=== PATIENT | male | born 1950 | race Caucasian/White ===

== ENCOUNTER 2019-04-15 01:07 | Inpatient (IN) | payer MEDICARE ==
[2019-04-15] VITALS (414 sets, daily range): BP systolic 106–148; BP diastolic 68–85; PULSE 86–96; TEMP 97.9–98.4; O2SAT 86–98
[~2019-04-15] VITALS: Ht 175.3 cm; Wt 230.0 kg
--- NOTE | 2019-04-15 01:10 | NUR ---
Pt arrived to room 314, transferred per stretcher by [facility]. Pt will open eyes et answer to verbal stimuli but very minimal movement. Assist x6 to transfer from stretcher to bed. Pt noted to have very labored resp, RR 40, audible expiratory wheezes. RT at bedside c bipap upon pt arrival. O2 at 4L per NC, O2 sat 92%. IV patent. Pt oriented to self only but remains able to answer simple questions appropriately et voice needs. Attempt to orient pt to room, unit policies et current POC. Emy CANVAS MARKER notified of pt arrival et condition. Pt placed on bipap et neb admin by RT per phone order. Will continue c admit assessment.
--- NOTE | 2019-04-15 01:30 | NUR ---
Emy in room to assess pt. RT remains at bedside. Resp less labored than on arrival, RR 32. Pt ivet bipap well at this time.
[2019-04-15] MEDS ORDERED: ASPIRIN E.C. 8181 MG PO (01:59)
[2019-04-15] MEDS ORDERED: LIPITOR 40MG TA40 MG PO (01:59)
[2019-04-15] MEDS ORDERED: THERA-D 20002000 IU PO (02:00)
[2019-04-15] MEDS ORDERED: COLCRYS0.6 MG PO (02:01)
[2019-04-15] MEDS ORDERED: CYMBALTA 20MG20 MG PO (02:02)
[2019-04-15] MEDS ORDERED: PROSCAR 5MG5 MG PO (02:02)
[2019-04-15] MEDS ORDERED: NOVLOG SQ (02:04)
[2019-04-15] MEDS ORDERED: LASIX 20MG TABL20 MG PO (02:04)
[2019-04-15] MEDS ORDERED: LEVEMIR100 U/ML SQ (02:05)
[2019-04-15] MEDS ORDERED: LIDODERM 5% PATC1 EA TP (02:06)
[2019-04-15] MEDS ORDERED: PRINZIDE 12.5 M1 TA1 PO (02:07)
[2019-04-15] MEDS ORDERED: NORVASC 5MG5 MG/TAB PO (02:08)
[2019-04-15] MEDS ORDERED: CLARITIN 1010 MG/TAB PO (02:08)
[2019-04-15] MEDS ORDERED: VTAMINC250TA PO (02:09)
[2019-04-15] MEDS ORDERED: FLEXERIL 1010 MG/TAB PO (02:12)
[2019-04-15] MEDS ORDERED: OCUVITE1 TA1 PO (02:13)
[2019-04-15] MEDS ORDERED: NOVOLOG 100U100 U/M1 SQ (02:14)
[2019-04-15] MEDS ORDERED: SENNA-S 50 MG-81 TAB PO (02:15)
[2019-04-15] MEDS ORDERED: TYLENOL 500MG500 MG PO (02:16)
[2019-04-15] MEDS ORDERED: NEURONTIN400 MG/CAP PO (02:18)
[2019-04-15] MEDS ORDERED: ALBUTEROL0.83 MG/ML IH (02:20)
[2019-04-15] MEDS ORDERED: ATROVENT I0.2 MG/1 M IH (02:22)
[2019-04-15] MEDS ORDERED: MUCINEX 60600 MG/TA1 PO (02:23)
[2019-04-15] MEDS ORDERED: TYLENOL 325MG325 MG PO (02:24)
[2019-04-15] MEDS ORDERED: NYAMYC100000 U/G TP (02:25)
[2019-04-15 04:24] LABS: ARTERIAL BLD GAS O2 SATURATION 95.6 % (92-100); ARTERIAL BLD GAS TCO2 CT 30.7; ARTERIAL BLOOD GAS BASE EXCESS 1.6 (-2-2); ARTERIAL BLOOD GAS HCO3 28.9 meq/L (22-26); ARTERIAL BLOOD GAS PCO2 57.5 mmHg (35-45); ARTERIAL BLOOD GAS PO2 86.8 mmHg (80-100); ARTERIAL BLOOD GAS pH 7.32 (7.35-7.45)
--- NOTE | 2019-04-15 05:02 | NUR ---
Pt resting in bed condition unchanged. Pt has rested well since admit c few needs. Gloria bipap well. No needs at this time. Call light in reach, bed alarm on.
[2019-04-15 07:17] LABS: ARTERIAL BLD GAS O2 SATURATION 96.7 % (92-100); ARTERIAL BLD GAS TCO2 CT 26.5; ARTERIAL BLOOD GAS BASE EXCESS -1.8 (-2-2); ARTERIAL BLOOD GAS HCO3 24.9 meq/L (22-26); ARTERIAL BLOOD GAS PCO2 50.4 mmHg (35-45); ARTERIAL BLOOD GAS PO2 96.1 mmHg (80-100); ARTERIAL BLOOD GAS pH 7.31 (7.35-7.45)
--- NOTE | 2019-04-15 07:29 | NUR ---
Received report. Patient is resting in bed with eyes closed, bipap is in place. Respirations are even and labored. Does not wake up when entering room. Reporting nurse recieved call from sister who reports patient has dementia, does not ambulate and normally has respirator issues similar to this situation. Personal items and call light is within reach.
[2019-04-15 07:59] LABS: BASO % 0.3 % (0.0-2.0); GRAN # 5.7 (1.4-6.5); GRAN % 90.8 % (42.2-75.2); HEMATOCRIT 39.6 % (42.0-52.0); HEMOGLOBIN 12.6 g/dl (13.5-18.0); LYMPH # 0.4 (1.2-3.4); LYMPH % 6.5 % (20.0-51.0); MEAN CELL VOLUME 93 fl (80.0-100.0); MEAN CORPUSCULAR HEMOGLOBIN 30 pg (27.0-31.0); MEAN CORPUSCULAR HGB CONC 32 g/dl (33.0-37.0); MEAN PLATELET VOLUME 8.9 fl (7.4-10.4); MONO # 0.1 (0.1-0.6); MONO % 1.3 % (1.7-9.3); PLATELET COUNT 250 K/mm3 (130-400); RED BLOOD COUNT 4.24 M/mm3 (4.20-5.60)
[2019-04-15 08:10] LABS: CALCIUM 9.4 mg/dL (8.4-10.2); CREATININE, serum 1.75 (0.66-1.25); POTASSIUM 4.8 mmol/L (3.4-5.0)
--- NOTE | 2019-04-15 11:20 | NUR ---
REPORT RECEIVED FROM ANN-MARIE MOONEY ON MEDICAL FLOOR.
--- NOTE | 2019-04-15 11:37 | NUR ---
PT TRANFERRED FROM MEDICAL FLOOR TO ICU ROOM 5 VIA BED BY RN, RT, AND ACCOUNTING ASSISTANT WITH BIPAP IN PLACE. PT TRANSFERRED TO ICU BED AND ASSESSMENT PERFORMED. PT ALERT BUT IS NOT RESPONDING VERBALLY. PT COOPERATIVE AND PASSIVE AT THIS TIME.
--- NOTE | 2019-04-15 11:55 | NUR ---
16F GAMING CATH INSERTED.
--- NOTE | 2019-04-15 13:09 | NUR ---
Patient was transferred to ICU at 1045 in the bed and on bipap to room 5. Report was given to Ade prior to transfer. Respirations were noted to be improved after morphine administration and being placed on bipap. Personal belongings sent with patient.
--- NOTE | 2019-04-15 16:47 | NUR ---
PT SWITCHED TO 4L NC FOR PO PILLS AND MEAL. PT'S SAT 94%
--- NOTE | 2019-04-15 17:30 | NUR ---
PT REQUESTED TO BE PUT BACK ON BIPAP AFTER MEAL D/T SHORTNESS OF BREATH. PT NOTED TO HAVE MODERATE AMT OF WHEEZING WHILE ATTEMPTING TO EAT AND A HARSH INTERMITTENTLY PRODUCTIVE COUGH.
--- NOTE | 2019-04-15 21:10 | NUR ---
PT CONFUSED MOST OF THE TIME AND TAKES A LITTLE TIME TO RESPOND.
[2019-04-16] VITALS (762 sets, daily range): BP systolic 123–156; BP diastolic 60–88; PULSE 62–67; TEMP 97.5–98.5; O2SAT 78–98
--- NOTE | 2019-04-16 01:49 | NUR ---
INLINE TX. PT IS TOLERATING WELL BIPAP.
[2019-04-16 05:19] LABS: HEMATOCRIT 37.2 % (42.0-52.0); HEMOGLOBIN 11.9 g/dl (13.5-18.0); MEAN CELL VOLUME 91 fl (80.0-100.0); MEAN CORPUSCULAR HEMOGLOBIN 29 pg (27.0-31.0); MEAN CORPUSCULAR HGB CONC 32 g/dl (33.0-37.0); PLATELET COUNT 256 K/mm3 (130-400); RED BLOOD COUNT 4.08 M/mm3 (4.20-5.60); REDCELL DISTRIBUTION WIDTH-CV 12.6 % (11.5-14.5)
[2019-04-16 05:31] LABS: CALCIUM 9.5 mg/dL (8.4-10.2); CREATININE, serum 1.8 (0.66-1.25); POTASSIUM 4.4 mmol/L (3.4-5.0)
--- NOTE | 2019-04-16 05:38 | NUR ---
CRITICAL LAB OF GLUCOSE AT 401, RECHECKED WITH OUR MACHINE AND WAS 365. E CARE NOTIFIED AND WILL GIVE 12 UNITS OF NOVOLOG PER SLIDING SCALE ORDER, E CARE OKAY WITH IT.
[2019-04-16 06:34] LABS: LYMPHOCYTE 4 % (20.0-51.0); NEUTROPHILS 93 % (42.0-75.2); PLATELET ESTIMATE NORMAL (NORMAL)
--- NOTE | 2019-04-16 07:15 | NUR ---
BEDSIDE REPORT RECEIVED FROM JESICA KAY. PLAN OF CARE REVIEWED. CARE ASSUMED.
--- NOTE | 2019-04-16 07:22 | NUR ---
report given to JESICA Sherman.
--- NOTE | 2019-04-16 10:00 | NUR ---
CALL PLACED TO [facility] IN [place] TO ASK THE NURSING STAFF WHAT THE PATIENT'S BASELINE O2 REQUIREMENTS ARE. THE NURSE STATES THAT THE PATIENT USES 2L O2 VIA NASAL CANNULA NEEDED. I ASK IF THE PATIENT USES BIPAP AT NIGHT AND THE NURSE STATES THAT THE PATIENT DOES NOT USE BIPAP.
--- NOTE | 2019-04-16 10:29 | NUR ---
SW attended clinical rounds to discuss discharge planning. Patient lives at [facility] in [place]. Patient's PCP is Dr Santillan and [facility] provides all medications. Patient uses O2 PRN and a walker for ambulation. Patient does have a DPOA and a copy is on the chart. Patient's DPOA is his sister, Marguerite. Patient reports he would like to return to [facility] when he is discharged. Patient signed choice form. RAMU will fax updates to [facility].
[2019-04-16 10:51] LABS: ARTERIAL BLD GAS O2 SATURATION 94.3 % (92-100); ARTERIAL BLD GAS TCO2 CT 32.9; ARTERIAL BLOOD GAS BASE EXCESS 4.9 (-2-2); ARTERIAL BLOOD GAS HCO3 31.3 meq/L (22-26); ARTERIAL BLOOD GAS PCO2 53.7 mmHg (35-45); ARTERIAL BLOOD GAS PO2 74.7 mmHg (80-100); ARTERIAL BLOOD GAS pH 7.38 (7.35-7.45)
--- NOTE | 2019-04-16 16:47 | NUR ---
DR. ZARATE CALLED WITH MOST RECENT BLOOD GLUCOSE. HE ORDERS INSULIN GTT TO START. SEE EMAR.
--- NOTE | 2019-04-16 17:00 | NUR ---
PATIENT HAS BEEN WEARING BIPAP FOR MOST OF THE AFTERNOON. HE STATES THAT HE FEELS BETTER WITH BIPAP IN PLACE. WHEN HE TAKES BREAKS FROM BIPAP HE WEARS 4 L O2 VIA NASAL CANNULA.
--- NOTE | 2019-04-16 17:45 | NUR ---
INSULIN GTT STARTED, CONFIRMED DOSE WITH PHARMACY AND JESICA ADAN
--- NOTE | 2019-04-16 19:03 | NUR ---
3 NEBS GIVEN. PT IS MORE ALERT AND ORIENTED. WILL CONTINUE TO MONITOR.
--- NOTE | 2019-04-16 19:15 | NUR ---
BEDSIDE REPORT GIVEN TO JESICA KAY. PLAN OF CARE REVIEWED. INSULIN GTT REVIEWED. CARE TURNED OVER AT THIS TIME.
[2019-04-17] VITALS (811 sets, daily range): BP systolic 115–152; BP diastolic 65–103; PULSE 55–75; TEMP 97.9–98.6; O2SAT 78–99
[2019-04-17 05:22] LABS: HEMATOCRIT 37.1 % (42.0-52.0); HEMOGLOBIN 11.8 g/dl (13.5-18.0); MEAN CELL VOLUME 91 fl (80.0-100.0); MEAN CORPUSCULAR HEMOGLOBIN 29 pg (27.0-31.0); MEAN CORPUSCULAR HGB CONC 32 g/dl (33.0-37.0); MEAN PLATELET VOLUME 8.9 fl (7.4-10.4); PLATELET COUNT 308 K/mm3 (130-400); RED BLOOD COUNT 4.06 M/mm3 (4.20-5.60); REDCELL DISTRIBUTION WIDTH-CV 12.6 % (11.5-14.5)
[2019-04-17 05:30] LABS: CALCIUM 9.5 mg/dL (8.4-10.2); CREATININE, serum 1.77 (0.66-1.25)
[2019-04-17 05:57] LABS: BAND 31 % (0-10); HYPOCHROMIA 1+; LYMPHOCYTE 3 % (20.0-51.0); NEUTROPHILS 63 % (42.0-75.2); PLATELET ESTIMATE NORMAL (NORMAL)
[2019-04-17 05:58] LABS: OVALOCYTES 1+
--- NOTE | 2019-04-17 08:05 | NUR ---
Pt AAOx3 - pt disoriented on situation that brought pt to hospital. Pt turned as requested to right side. Pt only requires assistance getting lids off meals, able to feed self without difficulty.
--- NOTE | 2019-04-17 11:30 | NUR ---
Pt off unit for VQ scan - O2 and Insulin gtt continue
--- NOTE | 2019-04-17 12:30 | NUR ---
Pt back from scan, pt tolerated scan well. Head to toe assessment complete, no changes from AM assessment. New linens in place
[2019-04-18] VITALS (306 sets, daily range): BP systolic 94–167; BP diastolic 53–92; PULSE 57–97; TEMP 97.4–98.8; O2SAT 65–100
--- NOTE | 2019-04-18 00:20 | NUR ---
PT IS ON BIPAP. INLINE TX.
[2019-04-18 04:36] LABS: ARTERIAL BLD GAS O2 SATURATION 94.8 % (92-100); ARTERIAL BLD GAS TCO2 CT 35.3; ARTERIAL BLOOD GAS BASE EXCESS 7.3 (-2-2); ARTERIAL BLOOD GAS HCO3 33.7 meq/L (22-26); ARTERIAL BLOOD GAS PCO2 54.2 mmHg (35-45); ARTERIAL BLOOD GAS PO2 73.8 mmHg (80-100); ARTERIAL BLOOD GAS pH 7.41 (7.35-7.45)
[2019-04-18 06:16] LABS: HEMATOCRIT 38.7 % (42.0-52.0); HEMOGLOBIN 12.4 g/dl (13.5-18.0); MEAN CELL VOLUME 93 fl (80.0-100.0); MEAN CORPUSCULAR HEMOGLOBIN 30 pg (27.0-31.0); MEAN CORPUSCULAR HGB CONC 32 g/dl (33.0-37.0); MEAN PLATELET VOLUME 8.7 fl (7.4-10.4); PLATELET COUNT 288 K/mm3 (130-400); RED BLOOD COUNT 4.18 M/mm3 (4.20-5.60); REDCELL DISTRIBUTION WIDTH-CV 12.7 % (11.5-14.5)
[2019-04-18 06:33] LABS: CALCIUM 9.5 mg/dL (8.4-10.2); CREATININE, serum 1.62 (0.66-1.25); POTASSIUM 4.1 mmol/L (3.4-5.0)
--- NOTE | 2019-04-18 07:00 | NUR ---
Pts nose and bilateral cheeks reddened and BiPap indentation perkins visible. Skin intact, no complaints from pt.
[2019-04-18 07:22] LABS: BAND 1 % (0-10); LYMPHOCYTE 4 % (20.0-51.0); NEUTROPHILS 93 % (42.0-75.2); PLATELET ESTIMATE NORMAL (NORMAL)
--- NOTE | 2019-04-18 08:00 | NUR ---
Pt AAOx2 (disoriented to situation and year) in bed eating breakfast requiring assistance only with getting lids off food items. Pt states "my breathing is better than yesterday" despite tachypnea. Pt denies shortness of breath. Pt repositioned up in bed, call light in reach
--- NOTE | 2019-04-18 09:00 | NUR ---
MD José unable to be reached for ID consultation
--- NOTE | 2019-04-18 11:02 | NUR ---
Patient will move upstairs to the medical floor today. RAMU spoke with PT and they recommend patient return to [facility] for retirement, PT and OT. RAMU will fax updates to [facility].
--- NOTE | 2019-04-18 13:55 | NUR ---
Pt arrived to room 359 at this time. He is A/O to person, place and time. He currently denies any pain. Breathing is even and unlabored with tracheal wheezes and bilateral lung expiratory wheezes. Pt denies SOB, despite being tachypneic. Pt ate lunch prior to arrival to the floor, denies N/V. HR regular, tele monitor in place. Pt oriented to room and call light, he verbalizes understanding. Call light within reach. Will continue to monitor.
--- NOTE | 2019-04-18 14:40 | NUR ---
MD José still unable to be reached for ID consultation
--- NOTE | 2019-04-18 14:56 | NUR ---
Pt laying in bed audible wheezes still present. RT at bedside giving breathing treatment. No needs at this time.
--- NOTE | 2019-04-18 18:51 | NUR ---
Pt rested well after arriving to the floor. He had no needs or concerns. Remains on 3L O2 via NC. Call light within reach.
[2019-04-19] VITALS (7 sets, daily range): BP systolic 111–144; BP diastolic 57–79; PULSE 68–80; TEMP 97.6–98.8
[2019-04-19 06:29] LABS: HEMATOCRIT 37.7 % (42.0-52.0); MEAN CELL VOLUME 93 fl (80.0-100.0); MEAN CORPUSCULAR HEMOGLOBIN 30 pg (27.0-31.0); MEAN CORPUSCULAR HGB CONC 32 g/dl (33.0-37.0); PLATELET COUNT 272 K/mm3 (130-400); RED BLOOD COUNT 4.07 M/mm3 (4.20-5.60); REDCELL DISTRIBUTION WIDTH-CV 12.8 % (11.5-14.5)
[2019-04-19 06:33] LABS: CALCIUM 9.3 mg/dL (8.4-10.2); CREATININE, serum 1.23 (0.66-1.25); MAGNESIUM 2.5 mg/dL (1.6-2.3); POTASSIUM 3.9 mmol/L (3.4-5.0)
[2019-04-19 09:08] LABS: BAND 2 % (0-10); LYMPHOCYTE 15 % (20.0-51.0); NEUTROPHILS 75 % (42.0-75.2)
[2019-04-19 09:15] LABS: PLATELET ESTIMATE NORMAL (NORMAL)
--- NOTE | 2019-04-19 09:46 | NUR ---
Pt assessment complete. Pt is sitting up in bed upon entry, he is A/O x3. Pt has dyspnea at rest on 3L O2 via NC. Tracheal wheezes present. Pt encouraged to cough and deep breath. No pain at this time. Lidocaine patch to lower back. No N/V, mechanical soft diet ordered, assistance eating to be given. Kaitlin CARVER. Pt denies further needs, call light within reach.
--- NOTE | 2019-04-19 11:26 | NUR ---
SW attended clinical rounds. The patient is to switch to oral meds and his steroids have been stopped. SW to fax updates to [facility] and will continue to follow.
--- NOTE | 2019-04-19 19:29 | NUR ---
Pt had uneventful day, rested well. Continues on 3L O2 via NC. Aspiration precautions in place, recommended supervised PO intake. BS elevated, requiring Insulin. Pt denied any pain. Kaitlin CARVER. Call light within reach.
--- NOTE | 2019-04-20 01:44 | NUR ---
Patient in bed, difficult to arouse. CPAP mask off. RT called, en route to place CPAP on patient. Patient now awake, and willing to wear mask.
[2019-04-20 03:27] VITALS: BP 119/78; PULSE 74; TEMP 98.2
--- NOTE | 2019-04-20 05:00 | NUR ---
Shift assessment complete. Patient in bed, awake. Denies pain. Denies further needs at this time. Will continue to monitor.
[2019-04-20 07:02] LABS: BASO % 0.2 % (0.0-2.0); EOS # 0.6 (0.0-0.7); GRAN % 73.1 % (42.2-75.2); HEMATOCRIT 38.2 % (42.0-52.0); HEMOGLOBIN 12.2 g/dl (13.5-18.0); LYMPH # 1.3 (1.2-3.4); LYMPH % 11.4 % (20.0-51.0); MEAN CELL VOLUME 92 fl (80.0-100.0); MEAN CORPUSCULAR HEMOGLOBIN 29 pg (27.0-31.0); MEAN CORPUSCULAR HGB CONC 32 g/dl (33.0-37.0); MEAN PLATELET VOLUME 8.7 fl (7.4-10.4); MONO # 0.9 (0.1-0.6); MONO % 7.9 % (1.7-9.3); PLATELET COUNT 234 K/mm3 (130-400); RED BLOOD COUNT 4.15 M/mm3 (4.20-5.60); REDCELL DISTRIBUTION WIDTH-CV 12.8 % (11.5-14.5)
[2019-04-20 07:14] LABS: CALCIUM 9.3 mg/dL (8.4-10.2); CREATININE, serum 1.23 (0.66-1.25); MAGNESIUM 2.7 mg/dL (1.6-2.3); POTASSIUM 4.2 mmol/L (3.4-5.0)
--- NOTE | 2019-04-20 07:46 | NUR ---
Received report from JESICA Leyva.
--- NOTE | 2019-04-20 08:41 | NUR ---
Pt in bed resting, expiratroy wheezes noted, some dyspnea at rest, shift assessments complete, left Pt call light in reach, bed in lowest position.
[2019-04-20 08:45] VITALS: BP 108/53; PULSE 74; TEMP 97.7
[2019-04-20 12:31] VITALS: BP 115/64; PULSE 71; TEMP 98.1
[2019-04-20 15:10] VITALS: BP 140/65; PULSE 74; TEMP 98.3
--- NOTE | 2019-04-20 15:18 | NUR ---
RAMU contacted and updated Grecia at [facility]. SW to continue to follow.
[2019-04-20 16:28] LABS: ARTERIAL BLD GAS O2 SATURATION 94.4 % (92-100); ARTERIAL BLD GAS TCO2 CT 34.5; ARTERIAL BLOOD GAS BASE EXCESS 6.1 (-2-2); ARTERIAL BLOOD GAS HCO3 32.8 meq/L (22-26); ARTERIAL BLOOD GAS PCO2 56.4 mmHg (35-45); ARTERIAL BLOOD GAS PO2 74.9 mmHg (80-100); ARTERIAL BLOOD GAS pH 7.38 (7.35-7.45)
--- NOTE | 2019-04-20 19:51 | NUR ---
Pt has been napping during the day, he has some dyspnea at rest, he has had no C/O pain during the day, sales was removed this afternoon per order, Pt is able to take his medications by mouth with small sips of water without problems.
--- NOTE | 2019-04-20 21:00 | NUR ---
Initial assessment done-has been sleeping, o2 at 3L/nc, Tele on, PICC to KESHIA, Alert. oriented to place,person, requesting ice chips-states mouth is dry. Incontinent of urine- 4 assists to turn and clean up-
[2019-04-21] VITALS (7 sets, daily range): BP systolic 89–148; BP diastolic 49–125; PULSE 68–73; TEMP 97.5–98.4
--- NOTE | 2019-04-21 05:48 | NUR ---
Has been resting quietly most of the night- Incontinent of urine throughout the night-- requesting ice chips for dry mouth- morning blood sugar 158- 4 unit novolog insulin given- continues with o2 at 3L/nc
[2019-04-21 06:39] LABS: HEMOGLOBIN 11.5 g/dl (13.5-18.0); MEAN CELL VOLUME 94 fl (80.0-100.0); MEAN CORPUSCULAR HEMOGLOBIN 29 pg (27.0-31.0); MEAN CORPUSCULAR HGB CONC 31 g/dl (33.0-37.0); MEAN PLATELET VOLUME 8.9 fl (7.4-10.4); PLATELET COUNT 190 K/mm3 (130-400); RED BLOOD COUNT 3.94 M/mm3 (4.20-5.60); REDCELL DISTRIBUTION WIDTH-CV 12.8 % (11.5-14.5)
[2019-04-21 06:45] LABS: HEMATOCRIT 36.9 % (42.0-52.0)
[2019-04-21 06:47] LABS: CALCIUM 9.2 mg/dL (8.4-10.2); CREATININE, serum 0.98 (0.66-1.25); POTASSIUM 4.1 mmol/L (3.4-5.0)
[2019-04-21 09:42] LABS: BAND 5 % (0-10); EOSINOPHIL 7 % (0-4); LYMPHOCYTE 14 % (20.0-51.0); NEUTROPHILS 65 % (42.0-75.2); PLATELET ESTIMATE NORMAL (NORMAL)
--- NOTE | 2019-04-21 10:45 | NUR ---
This nurse resumed care at this time. NO pain or needs reported. The call light is in place.
--- NOTE | 2019-04-21 20:30 | NUR ---
Initial shift assessment done- denies pain- requesting ice chips, tele on, Incontinent of urine- cleaned up with assistance,repositioned, o2 at 3L/nc.
[2019-04-22 00:37] VITALS: BP 103/66; PULSE 73; TEMP 97.7
[2019-04-22 05:55] VITALS: BP 92/61; PULSE 63; TEMP 98.2
--- NOTE | 2019-04-22 06:00 | NUR ---
Quiet night- no changes, blood sugar this morning 103
--- NOTE | 2019-04-22 07:15 | NUR ---
Report received from JESICA Waggoner. Pt in bed resting, call light in reach, ordered breakfast, will continue to monitor.
[2019-04-22 08:54] VITALS: BP 91/52; PULSE 75; TEMP 98
--- NOTE | 2019-04-22 09:36 | NUR ---
Assessment charted. Pt has PICC to KESHIA, flushes well and good blood returned, INT'd at this time. Pt is morbidly obese in [facility] bed. Turns well, incontinent of urine, changed and pericare provided. Pannus has excoriation, lotrimin powder applied. Pt resting in bed, short of breath, 02 at 3L NC, tachypneac. BP is soft, Dr. Orosco aware. Turned to side for comfort. Will continue to monitor.
[2019-04-22 13:48] VITALS: BP 154/94; PULSE 70; TEMP 97.5
[2019-04-22 16:51] VITALS: BP 131/89; PULSE 69; TEMP 98.6
--- NOTE | 2019-04-22 18:46 | NUR ---
Pt has done well over shift. Rested in bed, incontinent of urine approximately 7 times over shift. Changed brief, pericare provided each time. Pt able to assist in turn but not able to call for urinal or use urinal on own. Taking PO well. Denies needs, will give bedside shift report to nightshift nurse who will resume care.
[2019-04-22 20:34] VITALS: BP 106/63; PULSE 70; TEMP 97.8
[2019-04-23 00:18] VITALS: BP 101/65; PULSE 70; TEMP 97.5
[2019-04-23 03:16] VITALS: BP 113/47; PULSE 71; TEMP 98.2
[2019-04-23 07:05] VITALS: BP 92/75; PULSE 68; TEMP 98.9
--- NOTE | 2019-04-23 08:33 | NUR ---
Assessment charted. Pt had no wheezing for me on assessment but with movement to get situated for breakfast did have some dyspnea on exertion and audible expiratory wheezing after movement. 02 at 3L NC. Lidocaine patch to low back. PICC to KESHIA flushes and good blood return. Denies pain. Breakfast given and am care provided, will continue to monitor.
--- NOTE | 2019-04-23 08:33 | NUR ---
Report received from JESICA Aldana. pT in bed resting with 02 at 3L. Denies needs, will continue to monitor.
--- NOTE | 2019-04-23 09:10 | NUR ---
PICC intact right upper arm. With sterile technique right upper arm PICC dressing change done with insertion site cleansed with ChloraPrep 1, chlorhexidine impregnated disc applied, skin prep, StatLock, and Tegaderm applied. No signs or symptoms of IV complications noted. No concerns voiced. Arm wrapped with Molina to protect catheter.
[2019-04-23] MEDS ORDERED: PERFOROMIS20 MCG/2 M IH (10:15)
[2019-04-23] MEDS ORDERED: PULMICORT0.5 MG/2 M IH (10:16)
[2019-04-23] MEDS ORDERED: LASIX 20MG TABL20 MG PO (10:16)
[2019-04-23] MEDS ORDERED: LEVEMIR FLEX100 U/ML SQ (10:17)
--- NOTE | 2019-04-23 10:47 | NUR ---
RAMU attended clinical rounds. Patient will discharge today, 04/23, to [facility] for PT, OT, and custodial. SW reviewed IM with patient. He requested SW review IM with his sister. RAMU spoke with patient's sister, Marguerite, about IM. Patient's sister signed IM and did not want a copy. RAMU faxed discharge orders to [facility] and arranged transportation for 1pm.
[2019-04-23 12:46] VITALS: BP 92/75; PULSE 68; TEMP 98.9
--- NOTE | 2019-04-23 13:32 | NUR ---
Pt picked up for discharge at this time with [facility] staff. Assisted into wheelchair with sit to stand lift and assistance of 2 people. PICC d/c'd by PICC team. Pt left wtih all bleongings. Packet sent with patient. Will call report to [facility] staff. Criteria met.
--- NOTE | 2019-04-23 13:48 | NUR ---
Report called, criteria met.
== END 2019-04-23 13:49 | DRG 190 ==
LOC: MEDICAL 01:07 → ICU 10:11 → MEDICAL 04-18 13:38
PROVIDERS: Family Medicine; Internal Medicine; Internal Medicine Pulmonary Disease; Nurse Practitioner; Physician Assistant; ADMIT Hospitalist
PROC: 02HV33Z Insertion of Infusion Device into Superior Vena Cava, Percutaneous Approach (ICD-10-PCS; principal; 2019-04-16)
DX: J44.1 Chronic obstructive pulmonary disease with (acute) exacerbation (principal); J96.02 Acute respiratory failure with hypercapnia; J18.9 Pneumonia, unspecified organism; Z68.43 Body mass index [BMI] 50.0-59.9, adult; E87.2 Acidosis; I50.30 Unspecified diastolic (congestive) heart failure; I13.0 Hypertensive heart and chronic kidney disease with heart failure and stage 1 through stage 4 chronic kidney disease, or unspecified chronic kidney disease; N17.9 Acute kidney failure, unspecified; Z66 Do not resuscitate; J44.0 Chronic obstructive pulmonary disease with (acute) lower respiratory infection; I27.20 Pulmonary hypertension, unspecified; G47.33 Obstructive sleep apnea (adult) (pediatric); I50.9 Heart failure, unspecified; N40.0 Benign prostatic hyperplasia without lower urinary tract symptoms; D64.9 Anemia, unspecified; E66.01 Morbid (severe) obesity due to excess calories; E78.5 Hyperlipidemia, unspecified; E11.9 Type 2 diabetes mellitus without complications; F03.90 Unspecified dementia, unspecified severity, without behavioral disturbance, psychotic disturbance, mood disturbance, and anxiety; E11.22 Type 2 diabetes mellitus with diabetic chronic kidney disease; N18.9 Chronic kidney disease, unspecified; I10 Essential (primary) hypertension; E11.65 Type 2 diabetes mellitus with hyperglycemia; Z79.4 Long term (current) use of insulin; Z79.82 Long term (current) use of aspirin; Z88.1 Allergy status to other antibiotic agents
CPT/HCPCS: 99222; 99222-AI; 99231-AI; 99232-AI; 99233-AI; 99239; A4314; A9540; A9567; C1751; J1644; J1815; J1940; J1956; J2270; J2543; J2920; J2930; J3370; J7040